=== PATIENT | female | born 1995 | race Caucasian/White ===

== ENCOUNTER 2023-09-21 23:35 | Emergency (ER) | payer OTHER, SELFPAY ==
[2023-09-21 23:49] VITALS: BP 120/71; PULSE 70; RESP 16; TEMP 36.3; O2SAT 96; BMI 23.1
[2023-09-22 01:31] VITALS: BP 128/80; PULSE 62; RESP 18; TEMP 36.4; O2SAT 98
[2023-09-22 08:49] VITALS: BP 127/81
--- NOTE | 2023-09-22 08:58 | ED_ITS ---
HPI - Allergic Reaction General Chief complaint: Allergic Reaction Stated complaint: hives, dizziness Time Seen by Provider: 09/22/23 08:50 Source: patient Mode of arrival: Ambulatory History of Present Illness HPI narrative: 27-year-old female presents for possible allergic reaction. Patient has hives over her neck, chest, and down into her legs. No known exposures or known allergies. Patient went to the walk-in clinic last week and was prescribed a Medrol Dennis, cetirizine, and Pepcid, which patient states she has been taking as prescribed. She states that the hives improved, but after she finished the steroid taper the hives returned. She called her nursing advice line last night because she was feeling lightheaded and dizzy, and they referred her to the emergency department for further evaluation. Related Data Previous Rx's Medication Instructions Recorded dexamethasone 4 mg tablet 4 mg PO DAILY #20 tabs 09/22/23 Allergies Allergy/AdvReac Type Severity Reaction Status Date / Time codeine Allergy Hives Verified 09/21/23 23:49 Penicillins Allergy Hives Verified 09/21/23 23:49 Sulfa (Sulfonamide Allergy Hives Verified 09/21/23 23:49 Antibiotics) Patient History Social History Smoking Status: Never smoker Smoking Status: Never smoker alcohol intake frequency: a few times a week Substance Use Type: does not use Exam Initial Vital Signs Initial Vital Signs: Vital Signs Temperature 97.3 F L 09/21/23 23:49 Pulse Rate 70 09/21/23 23:49 Respiratory Rate 16 09/21/23 23:49 Blood Pressure 120/71 09/21/23 23:49 Pulse Oximetry 96 09/21/23 23:49 Oxygen Delivery Method Room Air 09/21/23 23:49 Const: Awake, alert, no acute distress, nontoxic appearing Cardiac: regular rate, regular rhythm RESP: unlabored, clear bilaterally, no wheezing Skin: Hives over neck, chest, torso Neuro: AO x3, CN II-XII grossly intact, moves all extremities Course Orders Ordered: Discontinued Medications Dexamethasone (Dexamethasone 10 Mg/Ml Vial) 10 mg IV NOW ONE Stop: 09/22/23 08:58 Last Admin: 09/22/23 10:00 Dose: 10 mg Documented By: ROMI Diphenhydramine HCl (Diphenhydramine 50 Mg/Ml Vial) 50 mg IV NOW ONE Stop: 09/22/23 08:58 Last Admin: 09/22/23 10:00 Dose: 50 mg Documented By: ROMI Vital Signs Vital signs: Vital Signs - 8 hr 09/22/23 08:49 Blood Pressure 127/81 MDM - Allergic Reaction Lab Data 09/22/23 10:00 09/22/23 10:00 Labs: Lab Results 09/22/23 Range/Units 10:00 WBC 7.8 (4.5-11.0) X10^3/uL RBC 4.96 (4.0-5.2) X10^6/uL Hgb 14.6 (12.0-16.0) g/dL Hct 42.6 (36-46) % MCV 86.0 (80-100) fL MCH 29.4 (26-34) PG MCHC 34.2 (30-36) % RDW 13.1 (11.6-14.8) % Plt Count 248 (150-400) X10^3/uL Neut % (Auto) 62.0 (50-75) % Lymph % (Auto) 27.8 (25-40) % [place] % (Auto) 8.3 (3-14) % Eos % (Auto) 1.2 L (2-4) % Baso % (Auto) 0.7 (0-2) % Neut # (Auto) 4900 (6695-1405) /uL Lymph # (Auto) 2200 (3940-4667) /uL [place] # (Auto) 600 (0-900) /uL Eos # (Auto) 100 (0-450) /uL Baso # (Auto) 100 (0-100) /uL Sodium 140 (137-145) mmol/L Potassium 3.8 (3.4-5.1) mmol/L Chloride 102 (98-107) mmol/L Carbon Dioxide 27 (22-32) mmol/L BUN 16 (7-17) mg/dL Creatinine 0.69 (0.52-1.04) mg/dL Estimated GFR > 60 (>60) mL/min BUN/Creatinine Ratio 23.2 H (6-22) Glucose 89 (70-100) mg/dL Calcium 9.1 (8.4-10.2) mg/dL Total Bilirubin 0.5 (0.2-1.3) mg/dL AST 22 (14-36) IU/L ALT 17 (<35) IU/L Alkaline Phosphatase 64 (38-126) U/L Total Protein 8.5 H (6.3-8.2) g/dL Albumin 5.0 (3.5-5.0) g/dL Globulin 3.5 (1.7-4.1) g/dL Albumin/Globulin Ratio 1.4 (1.0-2.8) MDM Narrative Medical decision making narrative: Possible allergic reaction and dizziness. Patient states that she has a primary care appointment later this afternoon, is here today because she was referred by the nurse advice line. Patient does have diffuse pruritic rash similar to hives, no signs or symptoms of anaphylaxis, lungs are clear to auscultation bilaterally, hemodynamically stable. EKG is normal sinus rhythm without concerning findings. Patient's laboratory work is unremarkable. Patient given additional prescription for steroids and discharged with instructions to make sure that she keeps her primary care appointment later this afternoon as intended. Discharge Plan Departure Patient Disposition: Home Clinical Impression: Urticaria Instructions: DI for Hives Activity Restrictions/Additional Instructions: Continue to take the famotidine and cetirizine. An additional course of steroids has been sent to the pharmacy. 20 tablets were sent, however I recommend only using the steroids for 5 days (5 total tablets) Prescriptions: New dexamethasone 4 mg tablet 4 mg PO DAILY Qty: 20 0RF Referrals: ProviderPhi [Primary Care Provider] - Stand Alone Forms: Patient Portal/API
--- NOTE | 2023-09-22 09:31 | EKG_ITS ---
[address] [address] Test Date: 2023-09-22 Pat Name: Lillie Weiner Department: [facility] Room: Gender: Female Escapement Maker: DOUG : 1995 Requested By: Order Number: [id number] Reading MD: Shon Ibanez Measurements Intervals [place] Rate: 50 P: 40 OH: 136 QRS: 54 QRSD: 84 T: 29 QT: 454 QTc: 413 Interpretive Statements Sinus bradycardia Electronically Signed On 09-24-2023 7:33:59 PDT by Shon Ibanez
[2023-09-22] MEDS: DEXAMETHASONE 10 MG/ML VIAL IV (10:00)
[2023-09-22] MEDS: diphenhydrAMINE 50 MG/ML VIAL IV (10:00)
[2023-09-22 10:23] VITALS: PULSE 71; O2SAT 100
[2023-09-22 10:30] VITALS: BP 120/85; PULSE 72; O2SAT 100
[2023-09-22 10:33] LABS: Add Manual Diff / Slide Review NO; Basophils Absolute Auto 100 /uL (0-100); Basophils Percent Auto 0.7 % (0-2); Eosinophils Absolute Auto 100 /uL (0-450); Eosinophils Percent Auto 1.2 % (2-4); Hematocrit 42.6 % (36-46); Hemoglobin 14.6 g/dL (12.0-16.0); Lymphocytes Absolute Auto 2200 /uL (1100-4500); Lymphocytes Percent Auto 27.8 % (25-40); Mean Corpuscular HGB Conc 34.2 % (30-36); Mean Corpuscular Hemoglobin 29.4 PG (26-34); Monocytes Absolute Auto 600 /uL (0-900); Monocytes Percent Auto 8.3 % (3-14); Neutrophils Absolute Auto 4900 /uL (1500-7000); Platelet Count 248 X10^3/uL (150-400); Red Blood Cell Count 4.96 X10^6/uL (4.0-5.2); Red Cell Distribution Width 13.1 % (11.6-14.8); White Blood Cell Count 7.8 X10^3/uL (4.5-11.0)
[2023-09-22 10:49] LABS: Alanine Aminotransferase 17 IU/L (<35); Albumin Globulin Ratio 1.4 (1.0-2.8); Alkaline Phosphatase 64 U/L (38-126); Aspartate Aminotransferase 22 IU/L (14-36); BUN Creatinine Ratio 23.2 (6-22); Bilirubin Total 0.5 mg/dL (0.2-1.3); Blood Urea Nitrogen 16 mg/dL (7-17); Calcium 9.1 mg/dL (8.4-10.2); Carbon Dioxide 27 mmol/L (22-32); Chloride 102 mmol/L (98-107); Estimated Glomerular Filt Rate > 60 mL/min (>60); Globulin 3.5 g/dL (1.7-4.1); Glucose 89 mg/dL (70-100); HEMOLYSIS < 15 (0-50); Potassium 3.8 mmol/L (3.4-5.1); Sodium 140 mmol/L (137-145); Total Protein 8.5 g/dL (6.3-8.2)
[2023-09-22 11:02] VITALS: TEMP 36.7
== END 2023-09-22 11:04 | disposition home or self-care (01) ==
PROVIDERS: Emergency Provider Emergency Medicine
DX: L50.9 Urticaria, unspecified (principal); R07.9 Chest pain, unspecified
CPT/HCPCS: 36415; 80053; 85025; 93005; 96374; 96375; 99284; J1100; J1200

== ENCOUNTER 2024-03-03 11:57 | Day surgery (SDC) | payer OTHER, SELFPAY ==
[2024-02-25 09:58] VITALS: BMI 25.0
--- NOTE | 2024-03-03 12:13 | P.HPOB_ITS ---
History of Present Illness History of Present Illness Narrative: Lillie Weiner is a 28 year old female admitted for planned LEEP procedure. No new complaints or concerns today. [facility] Medical History Atypical squamous cells cannot exclude high grade squamous intraepithelial lesion (ASC-H) on Papanicolaou smear Surgical History Anesthesia History of tubal ligation (~2022) History of appendectomy (~2006) Family History (Updated 02/28/24 @ 18:56 by Katelyn Pierre) Father Hypertension Mother Uterine cancer Hypertension Grandmother Aneurysm Social History household members: significant other Smoking Status: Never smoker alcohol intake: never Meds Home Medications and Allergies Home Medications Medication Instructions Recorded Confirmed Type No Known Home Medications 02/08/24 02/08/24 History Allergies Allergy/AdvReac Type Severity Reaction Status Date / Time codeine Allergy Hives Verified 03/03/24 12:05 Penicillins Allergy Hives Verified 03/03/24 12:05 Sulfa (Sulfonamide Allergy Hives Verified 03/03/24 12:05 Antibiotics) Review of Systems Review of Systems ROS: Yes All systems reviewed with the patient and are negative except as otherwise documented Exam Const General: healthy appearing, comfortable and No acute distress Resp Effort & Inspection: normal respiratory effort and able to speak in complete sentences Skin General: no rashes or lesions noted Neuro General: patient alert and patient awake Cognition: normal cognition Speech: speech normal Extrem General: normal to inspection Psych Mood: congruent mood Affect: normal affect Assessment & Plan Assessment and plan (1) High grade squamous intraepithelial lesion (HGSIL), grade 2 SCOTT, on biopsy of cervix: Status: Acute Assessment & Plan narrative: 28yo F with SCOTT 2 on colposcopy, here for LEEP procedure. We reviewed the surgical consent, which was signed today. Reviewed postop expectations. -plan for same day procedure -will call with pathology results when available to determine follow-up Surgery consent We discussed the risks/benefits/alternatives to the proposed procedure, to include but not limited to: -risk of bleeding, requiring medications, blood products, or other procedures as indicated -risk of infection, requiring prolonged hospital stay or other procedures -risk of injury to other structures, including bowel, bladder, blood vessels, nerves, etc. which may also require additional procedures -risk of adverse reaction to anesthesia or medications -risk of venous thromboembolism and associated sequelae -risk of rare complications such as cardiac arrest, or extremely rarely, Patient is aware of the risks, and desires to proceed with planned surgical procedure. Time-Based Coding :: [30min] spent with patient and on the chart (including review of chart, obtaining history, exam, reviewing outside data, placing orders, documenting exam and treatment plan, and counseling patient) on [03/03/24].
[2024-03-03 12:14] VITALS: BMI 24.0
[2024-03-03 12:16] VITALS: BP 112/76; PULSE 62; RESP 12; TEMP 36.4; O2SAT 100
[2024-03-03] MEDS: LACTATED RINGERS 1,000 ML 42 ML IV (12:24)
--- NOTE | 2024-03-03 13:01 | PM.OP.1 ---
Operative Date/Time/Diagnoses Date of procedure: 03/03/24 Time of procedure: 12:45 Pre-op diagnosis: High grade squamous intraepithelial lesion (SCOTT 2) Post-op diagnosis: same Procedure & Clinicians Procedure: Loop electrode excisional procedure Same procedure as scheduled: Yes Indications: 28yo F with SCOTT 2 on colposcopic biopsy, thus counseled and consented for LEEP. Surgeon: Mitzy García Click Yes if Unassisted: Yes Anesthesia Type: General Operative Notes Findings: Cervical dysplasia noted throughout the transitional zone. Otherwise normal appearing vulva and vagina. Closure Type: not applicable Specimen(s): other (LEEP) Estimated Blood Loss (mL): 1 Blood products transfused: none Procedure in detail: The risks, benefits, indications and alternatives of the procedure were reviewed with the patient and informed consent was obtained. The pt was taken to the operating room where general anesthesia was obtained without difficulty. The pt was then placed in the low lithotomy position using gel-padded Shon stirrups. SCDs were placed bilaterally for VTE prophylaxis. The pt was then prepped and draped in the sterile fashion. A sterile, coated speculum was placed into the vagina and the cervix was visualized. A paracervical block was then performed using approximately 8cc of 1% lidocaine with epinephrine. A 1.5 x 0.5cm LEEP radius electrode was used to excise the ectocervix. Tissue was sent to pathology for review. Hemostasis was acheived with electrocautery using the Roller Ball electrode. Monsel's solution was then applied with excellent hemostasis noted. All instruments were then removed from the vagina. At the completion of the case the sponge and needle counts were correct x 2. The patient tolerated the procedure well and was taken to the PACU in stable condition. Complications: none Post-operative Condition: stable Disposition: PACU Plan for aftercare: Discharge home once meeting PACU criteria.
[2024-03-03 13:08] VITALS: BP 90/57; PULSE 80; RESP 16; TEMP 36.4; O2SAT 98
[2024-03-03 13:13] VITALS: BP 94/60; PULSE 78; RESP 12; O2SAT 100
[2024-03-03 13:18] VITALS: BP 107/64; PULSE 95; RESP 12; TEMP 36.7; O2SAT 100
[2024-03-03 13:23] VITALS: BP 119/75; PULSE 84; RESP 12; O2SAT 99
[2024-03-03 13:29] VITALS: BP 111/77; PULSE 81; RESP 16; O2SAT 100
== END 2024-03-03 13:58 | disposition home or self-care (01) ==
PROVIDERS: Referring Provider Student in an Organized Health Care Education/Training Program; Visit Provider Student in an Organized Health Care Education/Training Program
PROC: 0UBC7ZZ Excision of Cervix, Via Natural or Artificial Opening (ICD-10-PCS; CPT 57522; principal; 2024-03-03 13:30)
DX: N87.1 Moderate cervical dysplasia (principal); N87.0 Mild cervical dysplasia
CPT/HCPCS: 57522; J2250; J2704; J3010

== ENCOUNTER → 2025-01-03 07:59 | Outpatient (CLI) | payer OTHER, SELFPAY ==
[2025-01-03 09:16] LABS: Hemoglobin A1C% w Est Avg Glu 5.0 % (4.0-6.0)
[2025-01-03 09:40] LABS: Cholesterol 105 mg/dL (140-199); HDL Cholesterol 39 mg/dL (40-60); Triglycerides 91 mg/dL (35-150)
[2025-01-03 10:26] LABS: Glucose 1 Hour 102 mg/dL (70-170)
[2025-01-03 11:23] LABS: Glucose Tol Interpretation INTERPRETATION
[2025-01-03 11:30] LABS: Glucose 2 Hour 99 mg/dL (70-140)
[2025-01-03 12:50] LABS: Glucose 3 Hour 55 mg/dL (70-115)
[2025-01-03 14:58] LABS: Follicle Stimulating Hormone 5.69 mIU/mL
[2025-01-03 15:14] LABS: Estradiol, Total 36.4 pg/mL
== END ==
PROVIDERS: Referring Provider Obstetrics & Gynecology; Visit Provider Obstetrics & Gynecology
DX: E28.2 Polycystic ovarian syndrome (principal); L68.0 Hirsutism
CPT/HCPCS: 36415; 80061; 82670; 82951; 82952; 83001; 83002; 83036